=== PATIENT | female | born 1950 | race African-American/Black ===

== ENCOUNTER 2017-03-22 12:57 | Emergency (ER) | payer MEDICARE, OTHER ==
--- NOTE | 2017-03-22 13:55 | RAD ---
PORTABLE CHEST 1 VIEW: Date: 03/22/17 Time: 1332 hours HISTORY: Chest pain. FINDINGS: Comparison made with exam of 02/26/10. The heart size is normal. The aorta is tortuous. No focal areas of consolidation, pneumothorax, or p leural effusions are seen. There are degenerative changes in the shoulder joints. IMPRESSION: No radiographic evidence of acute cardiopulmonary process. POS: OFF
[2017-03-22 14:00] LABS: ALT (SGPT) 8 U/L (8-55); AST (SGOT) 13 U/L (5-34); Alkaline Phosphatase 96 U/L (40-150); Anion Gap 12 mmol/L (10-20); BUN (Urea Nitrogen) 15 mg/dL (9.8-20.1); Bilirubin, Total 0.3 mg/dL (0.2-1.2); Calc. Creatinine Clearance 0 mL/min (70-130); Carbon Dioxide 28 mmol/L (23-31); Chloride 99 mmol/L (98-107); Estimated GFR-MDRD Greater than 90; Lipase 22 U/L (8-78); Protein, Total 7.6 g/dL (6.0-8.3)
[2017-03-22 14:05] LABS: Troponin I 0.014 ng/mL (< 0.028)
[2017-03-22 14:42] LABS: #Lymphocytes 1.3 thou/uL (1.20-3.40); #Monocytes 0.4 thou/uL (0.11-0.59); #Neutrophils 4.8 thou/uL (1.40-6.50); %Basophils 0.5 % (0.0-1.0); %Eosinophils 0.2 % (0.0-10.0); %Lymphocytes 19.5 % (21.0-51.0); %Monocytes 6.2 % (0.0-10.0); Hematocrit 34.9 % (36.0-47.0); Mean Platelet Volume 7.5 fL (7.4-10.4); Red Blood Cell (RBC) Count 4.57 mill/uL (4.20-5.40); White Blood Cell (WBC) Count 6.5 thou/uL (4.8-10.8)
[2017-03-22 17:11] LABS: Troponin I 0.012 ng/mL (< 0.028)
== END 2017-03-22 18:27 | disposition home or self-care (01) ==
LOC: ERS 12:57
DX: R07.9 Chest pain, unspecified (principal); I10 Essential (primary) hypertension; Z79.899 Other long term (current) drug therapy
CPT/HCPCS: 36415; 71010; 80053; 82553; 83690; 83880; 84484; 85025; 93005